=== PATIENT | female | born 1965 | race Two or more races ===

== ENCOUNTER 2023-02-18 16:34 | Emergency (ER) | payer MEDICAID ==
[~2023-02-18] VITALS: Ht 157.5 cm; Wt 86.0 kg
[2023-02-18 20:30] VITALS: BP 112/71; PULSE 87; RESP 18; TEMP 98.6
[2023-02-18 20:34] VITALS: O2SAT 98
[2023-02-18] MEDS ORDERED: IBUPROFEN 800 MG TAB PO ONE ×2 (20:45→21:00)
[2023-02-18] MEDS ORDERED: IBUP-1455 PO (20:46)
== END 2023-02-18 21:14 | disposition home or self-care (01) ==
LOC: ER 16:34
DX: S62.346A Nondisplaced fracture of base of fifth metacarpal bone, right hand, initial encounter for closed fracture (principal); S00.511A Abrasion of lip, initial encounter; Z88.8 Allergy status to other drugs, medicaments and biological substances; Z79.899 Other long term (current) drug therapy; W01.0XXA Fall on same level from slipping, tripping and stumbling without subsequent striking against object, initial encounter; Y93.89 Activity, other specified; Y92.89 Other specified places as the place of occurrence of the external cause; Y99.8 Other external cause status
CPT/HCPCS: 29125; 73130; 82962

== ENCOUNTER 2023-02-25 00:33 | Emergency (ER) | payer MEDICAID ==
[~2023-02-25] VITALS: Ht 157.5 cm; Wt 85.3 kg
[~2023-02-25 00:33] MED LIST: IBUP-1455 PO
[2023-02-25 01:52] VITALS: BP 110/84; PULSE 103; RESP 16; TEMP 98; O2SAT 95
== END 2023-02-25 01:50 | disposition home or self-care (01) ==
LOC: ER 00:33
DX: S62.615A Displaced fracture of proximal phalanx of left ring finger, initial encounter for closed fracture (principal); Z88.6 Allergy status to analgesic agent; Y04.2XXA Assault by strike against or bumped into by another person, initial encounter; Y93.89 Activity, other specified; Y92.89 Other specified places as the place of occurrence of the external cause; Y99.8 Other external cause status
CPT/HCPCS: 29130; 73130